=== PATIENT | male | born 1985 | race Caucasian/White ===

== ENCOUNTER 2018-11-16 20:39 | Emergency (ER) | payer MEDICARE, SELFPAY ==
[2018-11-16 20:42] VITALS: BP 143/98; PULSE 110; RESP 18; TEMP 37; O2SAT 99
--- NOTE | 2018-11-16 20:45 | W.ED.GENAD ---
Discharge Plan Disposition Patient Disposition: HOME Condition: Stable Discharge Details Chief Complaint: Allergic Clinical Impression: Pruritus Primary Care Provider: Kulwinder Ziegler ED Provider: Karthik Ram Home Meds and New Rx's Prescriptions: New prednisone 20 mg tablet 60 mg PO DAILY 4 Days Qty: 12 RF: 0 No Action prednisone 20 MG tablet 40 mg PO DAILY Qty: 14 RF: 0 Discharge Instructions Additional Instructions: take benadryl as needed for itching symptoms, follow dosing instructions on packaging If you have severe worsening shortness of breath, severe abdominal pain or persistent vomit return to the emergency department Medical Decision Making 33 yo male states he was outside during the day and went inside around 6pm and started to feel itching everywhere. Took 2 benadryl and does feel better now. Has clear lungs, no rashes, no uritciaria, normal oropharynx, no gi symptoms or abdominal tenderness. I suspect some time of allergic reaction to environmental allergen. No findings at this present time to suggest anaphylaxis. Will tx with prendisone and monitor. pt remains stable and is requesting d/c, has no rashes, respiratory or gi symptoms so do not feel epi pen indicated. Will d/c with prednisone, advised f/u with pcp to discuss allergy testing and return precautions given Differential Diagnosis allergic reaction, anaphylaxis HPI General Mode of arrival: ambulatory. Date/Time Provider Initiated Documentation: 11/16/18 20:41. Limitations to Documentation: no limitations. Information obtained by: patient. History of Present Illness 33 year old M presents to the emergency department with the chief complaint of itching, described as moderate, Quality is described as other (itching), and is localized to the abdomen, left, right and upper extremity. Patient reports no radiation. Patient started experiencing this hour(s) (2) and it has been constant. No relieving factors improve symptom(s), No exacerbating factors reported . Patient notes other (benadryl). Patient did receive the following treatments prior to arrival, other (benadryl) Related Data Home Medications Medication Instructions Recorded Confirmed prednisone 40 mg PO DAILY #14 tablet 06/25/15 prednisone 60 mg PO DAILY 4 Days #12 tab 11/16/18 Previous Rx's Medication Instructions Recorded prednisone 40 mg PO DAILY #14 tablet 06/25/15 prednisone 60 mg PO DAILY 4 Days #12 tab 11/16/18 Allergies Allergy/AdvReac Type Severity Reaction Status Date / Time No Known Allergies Allergy Unverified 11/16/18 20:45 General Stated Complaint: Allergic ANKITA: 4 Review of Systems Review of Systems All systems reviewed & are unremarkable except as noted in HPI and below Constitutional Denies chills, Denies fever(s) and Denies weakness Cardiovascular Denies chest pain Respiratory Denies cough Gastrointestinal Denies abdominal pain, Denies nausea and Denies vomiting Genitourinary Denies dysuria Musculoskeletal Denies joint swelling Integumentary/Breasts Denies rash Neurologic Denies weakness PFSH Social History Smoking/Tobacco Use Status: Current every day Tobacco Type: cigarettes Alcohol Intake: never Drug use: Never Do you feel safe at home: Yes Do you feel safe in your relationship?: Yes Exam Const General: no acute distress Orientation: alert HENMT Head: normal to inspection Ears: external ears normal General nose exam: external nose normal Mouth: moist mucous membranes Eyes General: appearance normal, both eyes and all related structures Neck Neck: normal visual inspection Resp Effort & Inspection: normal respiratory effort and able to speak in complete sentences Cardio Rate: regular rate Skin General skin exam: no rashes or lesions noted Neuro General: alert and oriented x3 Extrem General: normal to inspection Psych Mental Status: mental status grossly normal Course Vital Signs Temperature 37.0 C 11/16/18 20:42 Pulse 110 H 11/16/18 20:42 Respiratory Rate 18 11/16/18 20:42 Blood Pressure 143/98 H 11/16/18 20:42 Pulse Oximetry 99 11/16/18 20:42 Temperature 37.0 C 11/16/18 20:42 Temperature Source Skin 11/16/18 20:42 Pulse 110 H 11/16/18 20:42 Respiratory Rate 18 11/16/18 20:42 Blood Pressure 143/98 H 11/16/18 20:42 Blood Pressure Position Sitting 11/16/18 20:42 Pulse Oximetry 99 11/16/18 20:42 Oxygen Delivery Method Room Air 11/16/18 20:42 Oxygen Flow Rate 0 11/16/18 20:42 Pain Level 0 11/16/18 20:42
[2018-11-16] MEDS: predniSONE 20 MG TAB 60 MG PO (20:48)
--- NOTE | 2018-11-16 20:49 | ED.GENADUL_ITS ---
Discharge Plan Disposition Patient Disposition: HOME Condition: Stable Discharge Details Chief Complaint: Allergic Clinical Impression: Pruritus Primary Care Provider: Kulwinder Ziegler ED Provider: Karthik Ram Home Meds and New Rx's Prescriptions: New prednisone 20 mg tablet 60 mg PO DAILY 4 Days Qty: 12 RF: 0 No Action prednisone 20 MG tablet 40 mg PO DAILY Qty: 14 RF: 0 Discharge Instructions Additional Instructions: take benadryl as needed for itching symptoms, follow dosing instructions on packaging If you have severe worsening shortness of breath, severe abdominal pain or persistent vomit return to the emergency department Medical Decision Making 33 yo male states he was outside during the day and went inside around 6pm and started to feel itching everywhere. Took 2 benadryl and does feel better now. Has clear lungs, no rashes, no uritciaria, normal oropharynx, no gi symptoms or abdominal tenderness. I suspect some time of allergic reaction to environmental allergen. No findings at this present time to suggest anaphylaxis. Will tx with prendisone and monitor. pt remains stable and is requesting d/c, has no rashes, respiratory or gi symptoms so do not feel epi pen indicated. Will d/c with prednisone, advised f/u with pcp to discuss allergy testing and return precautions given Differential Diagnosis allergic reaction, anaphylaxis HPI General Mode of arrival: ambulatory . Date/Time Provider Initiated Documentation: 11/16/18 20:41 . Limitations to Documentation: no limitations . Information obtained by: patient . History of Present Illness 33 year old M presents to the emergency department with the chief complaint of itching, described as moderate, Quality is described as other (itching), and is localized to the abdomen, left, right and upper extremity. Patient reports no radiation. Patient started experiencing this hour(s) (2) and it has been constant. No relieving factors improve symptom(s), No exacerbating factors reported . Patient notes other (benadryl). Patient did receive the following treatments prior to arrival, other (benadryl) Related Data Home Medications Medication Instructions Recorded Confirmed prednisone 40 mg PO DAILY #14 tablet 06/25/15 prednisone 60 mg PO DAILY 4 Days #12 tab 11/16/18 Previous Rx's Medication Instructions Recorded prednisone 40 mg PO DAILY #14 tablet 06/25/15 prednisone 60 mg PO DAILY 4 Days #12 tab 11/16/18 Allergies Allergy/AdvReac Type Severity Reaction Status Date / Time No Known Allergies Allergy Unverified 11/16/18 20:45 General Stated Complaint: Allergic ANKITA: 4 Review of Systems Review of Systems All systems reviewed & are unremarkable except as noted in HPI and below Constitutional Denies chills, Denies fever(s) and Denies weakness Cardiovascular Denies chest pain Respiratory Denies cough Gastrointestinal Denies abdominal pain, Denies nausea and Denies vomiting Genitourinary Denies dysuria Musculoskeletal Denies joint swelling Integumentary/Breasts Denies rash Neurologic Denies weakness PFSH Social History Smoking/Tobacco Use Status: Current every day Tobacco Type: cigarettes Alcohol Intake: never Drug use: Never Do you feel safe at home: Yes Do you feel safe in your relationship?: Yes Exam Const General: no acute distress Orientation: alert HENMT Head: normal to inspection Ears: external ears normal General nose exam: external nose normal Mouth: moist mucous membranes Eyes General: appearance normal, both eyes and all related structures Neck Neck: normal visual inspection Resp Effort & Inspection: normal respiratory effort and able to speak in complete sentences Cardio Rate: regular rate Skin General skin exam: no rashes or lesions noted Neuro General: alert and oriented x3 Extrem General: normal to inspection Psych Mental Status: mental status grossly normal Course Vital Signs Temperature 37.0 C 11/16/18 20:42 Pulse 110 H 11/16/18 20:42 Respiratory Rate 18 11/16/18 20:42 Blood Pressure 143/98 H 11/16/18 20:42 Pulse Oximetry 99 11/16/18 20:42 Temperature 37.0 C 11/16/18 20:42 Temperature Source Skin 11/16/18 20:42 Pulse 110 H 11/16/18 20:42 Respiratory Rate 18 11/16/18 20:42 Blood Pressure 143/98 H 11/16/18 20:42 Blood Pressure Position Sitting 11/16/18 20:42 Pulse Oximetry 99 11/16/18 20:42 Oxygen Delivery Method Room Air 11/16/18 20:42 Oxygen Flow Rate 0 11/16/18 20:42 Pain Level 0 11/16/18 20:42
[2018-11-16 21:06] VITALS: PULSE 102; RESP 18; O2SAT 96
[2018-11-16 21:11] VITALS: BP 129/91
[2018-11-16 21:34] VITALS: BP 109/79; PULSE 99; RESP 18; O2SAT 97
== END 2018-11-16 21:45 | disposition home or self-care (01) ==
PROVIDERS: Emergency Provider Emergency Medicine; PCP Family Medicine
DX: L29.9 Pruritus, unspecified (principal)
CPT/HCPCS: 99283; J7512

== ENCOUNTER 2022-01-18 01:56 | Outpatient (CLI) | payer MEDICARE, SELFPAY ==
--- NOTE | 2022-01-18 14:30 | DI.RAD_ITS ---
Exam(s) XR FOOT LT COMPLETE EXAM: XR FOOT LT COMPLETE CLINICAL HISTORY: PAIN IN LT FOOT, INJURED 2 YEARS AGO BENDING TOES UNDER, M79.672. TECHNIQUE: 2D digital imaging was performed. Three views. COMPARISON: No exams were available for comparison FINDINGS: BONES: No acute or old fracture is present. No bony destructive lesion is seen. JOINTS: No dislocation present. No significant degenerative changes. SOFT TISSUE: Normal. IMPRESSION: Unremarkable radiographs of the left foot. DATA REPOSITORY: RADIATION DOSE DELIVERED:
== END 2022-01-18 02:16 ==
PROVIDERS: Visit Provider Physician Assistant Medical
DX: M79.672 Pain in left foot (principal)
CPT/HCPCS: 73630